=== PATIENT | female | born 1965 | race Caucasian/White ===

== ENCOUNTER 2020-09-02 10:11 | Emergency (ER) | payer OTHER ==
[~2020-09-02 10:11] MED LIST: ATARAX25 MG PO; MEDROL 4MG DOSEP4 MG PO; PEPCID AC20 MG PO
[2020-09-02 11:07] LABS: BILIRUBIN NEGATIVE (NEGATIVE); BLOOD NEGATIVE Ery/uL (NEGATIVE); CLARITY CLEAR (CLEAR); COLOR YELLOW (YELLOW); GLUCOSE (U) NORMAL (NORMAL); LEUKOCYTES NEGATIVE Leu/uL (NEGATIVE); NITRITE NEGATIVE (NEGATIVE); PROTEIN TRACE (LOW) mg/dL (NEGATIVE)
[2020-09-02 11:07] LABS: BASOPHIL 0.4 % (0-2); EOSINOPHIL 2.1 % (0-5); HCT 39.6 % (37.0-47.0); HGB 13.2 g/dl (12.5-16.0); LYMPHOCYTE 16.7 % (15-48); MCH 30.4 pg (25.0-31.0); MCHC 33.3 g/dL (32.0-36.0); MCV 91.2 fL (78.0-100.0); MONOCYTE 8.5 % (0-12); MPV 10.8 fL (6.0-9.5); NEUTROPHIL 71.9 % (41-80); NRBC 0; PLT 212 K/uL (150-400); RBC 4.34 M/uL (4.20-5.40); RDW 12.9 % (11.5-14.0); WBC 11.8 K/uL (4.0-10.5)
[2020-09-02 11:39] LABS: BACTERIA 1+; SQUAMOUS EPITHELIAL CELLS 20-50; URINARY RBC RARE; URINARY WBC RARE
[2020-09-02] MEDS ORDERED: ANUCORT-HC25 MG PR (11:39)
[2020-11-06] MEDS ORDERED: KLOR-CON M2020 MEQ PO (15:22)
== END 2020-09-02 11:47 | disposition home or self-care (01) ==
LOC: FER 10:11
PROVIDERS: Emergency Medicine
DX: K64.4 Residual hemorrhoidal skin tags (principal); B34.9 Viral infection, unspecified; I10 Essential (primary) hypertension
CPT/HCPCS: 36415; 81001; 85025; 99283

== ENCOUNTER 2020-09-04 03:49 | Day surgery (SDCO) | payer OTHER ==
[~2020-09-04] VITALS: Ht 162.6 cm; Wt 108.0 kg
[~2020-09-04 03:49] MED LIST changes: +ANUCORT-HC25 MG PR
[2020-09-04 05:26] LABS: INR 1.14 (0.9-1.2); PTT 29.8 SECONDS (24.4-34.7)
[2020-09-04 05:32] LABS: BASOPHIL 0.3 % (0-2); EOSINOPHIL 1.1 % (0-5); HCT 40.4 % (37.0-47.0); HGB 13.5 g/dl (12.5-16.0); LYMPHOCYTE 10.2 % (15-48); MCH 30.1 pg (25.0-31.0); MCHC 33.4 g/dL (32.0-36.0); MCV 90.2 fL (78.0-100.0); MPV 11.1 fL (6.0-9.5); NEUTROPHIL 79.9 % (41-80); NRBC 0; PLT 246 K/uL (150-400); RBC 4.48 M/uL (4.20-5.40); RDW 12.6 % (11.5-14.0); WBC 15.7 K/uL (4.0-10.5)
[2020-09-04 05:34] LABS: ALBUMIN 3.6 g/dL (3.4-5.0); BILIRUBIN - TOTAL 0.7 mg/dL (0.2-1.0); BUN/CREAT RATIO (CALC) 26.7 RATIO; CREATININE 0.6 mg/dL (0.51-0.95); GLOBULIN (CALCULATION) 4.4 g/dL; POTASSIUM 3.6 mmol/L (3.5-5.1)
[2020-09-04] MEDS ORDERED: K-DUR20 MEQ PO (07:46)
[2020-09-04] MEDS ORDERED: FEOSOL325 MG PO (07:46)
[2020-09-04] MEDS ORDERED: HYDRALAZINE25 MG PO (07:47)
[2020-09-04] MEDS ORDERED: COZAAR50 MG PO (07:48)
[2020-09-04] MEDS ORDERED: VOLTAREN **OUT50 MG PO (07:48)
[2020-09-04] MEDS ORDERED: VITAMIN B-121000 MC1 PO (07:50)
[2020-09-04] MEDS ORDERED: VITAMIN D3125 MCG PO (07:51)
[2020-09-04] MEDS ORDERED: COREG25 MG PO (07:52)
[2020-09-04] MEDS ORDERED: AUGMENTIN 875-1 EACH PO (13:25)
[2020-09-04] MEDS ORDERED: COLACE100 MG PO (13:25)
[2020-09-04] MEDS ORDERED: ACETAMINOPHEN500 M1 PO (13:25)
[2020-09-04] MEDS ORDERED: MOTRIN600 MG PO (13:25)
[2020-09-04] MEDS ORDERED: OXY-IR 5MG5 MG PO (13:25)
--- NOTE | 2020-09-04 17:52 | NUR ---
[address] THAO THAT THE PATIENT HAS A TEMP 103.1 NEW ORDERS TO CANCEL THE DISCHARGE INSTRUCTIONS AND TO START IV ANTIBOTICS
--- NOTE | 2020-09-05 17:30 | NUR ---
PATIENT DISCHARGED HOME VIA PRIVATE VEHICLE WITH DAUGHTER. IV REMOVED. DISCHARGE INSTRUCTIONS REVIEWED AND PATIENT STATED SHE UNDERSTOOD THEM. ISNTRUCTED TO FOLLOW UP WITH PCP AND DR. THAO.
[2020-11-06] MEDS ORDERED: KLOR-CON M2020 MEQ PO (15:22)
== END 2020-09-05 17:45 | disposition home or self-care (01) ==
LOC: FER 03:49 → FAS 06:23 → FER 06:23 → FMS 06:32
PROVIDERS: Emergency Medicine; ADMIT Student in an Organized Health Care Education/Training Program
DX: K61.31 Horseshoe abscess (principal); I10 Essential (primary) hypertension; E53.8 Deficiency of other specified B group vitamins; E87.6 Hypokalemia; D50.9 Iron deficiency anemia, unspecified; E55.9 Vitamin D deficiency, unspecified; G43.909 Migraine, unspecified, not intractable, without status migrainosus; Z79.899 Other long term (current) drug therapy; Z88.2 Allergy status to sulfonamides; Z20.822 Contact with and (suspected) exposure to COVID-19
CPT/HCPCS: 36415; 72193; 80053; 85025; 85610; 85730; 87070; 87075; 87186; 87205; 93005; G0378; J1170; J2250; J2405; J2543; J2704; J3010; J3480; J7120; Q9967; U0002

== ENCOUNTER 2020-09-11 13:53 | Emergency (ER) | payer OTHER ==
[~2020-09-11 13:53] MED LIST changes: +ACETAMINOPHEN500 M1 PO; +AUGMENTIN 875-1 EACH PO; +COLACE100 MG PO; +COREG25 MG PO; +COZAAR50 MG PO; +FEOSOL325 MG PO; +HYDRALAZINE25 MG PO; +K-DUR20 MEQ PO; +MOTRIN600 MG PO; +OXY-IR 5MG5 MG PO; +VITAMIN B-121000 MC1 PO; +VITAMIN D3125 MCG PO; +VOLTAREN **OUT50 MG PO
[2020-09-11 16:43] LABS: BASOPHIL 0.7 % (0-2); EOSINOPHIL 3.1 % (0-5); HCT 40.2 % (37.0-47.0); HGB 13.5 g/dl (12.5-16.0); LYMPHOCYTE 28.6 % (15-48); MCH 30.1 pg (25.0-31.0); MCHC 33.6 g/dL (32.0-36.0); MCV 89.5 fL (78.0-100.0); MONOCYTE 7.6 % (0-12); MPV 10.2 fL (6.0-9.5); NEUTROPHIL 58.7 % (41-80); NRBC 0; PLT 281 K/uL (150-400); RBC 4.49 M/uL (4.20-5.40); RDW 12.4 % (11.5-14.0); WBC 8.2 K/uL (4.0-10.5)
[2020-09-11 16:57] LABS: ALBUMIN 3.7 g/dL (3.4-5.0); BILIRUBIN - TOTAL 0.3 mg/dL (0.2-1.0); BUN/CREAT RATIO (CALC) 20.6 RATIO; CREATININE 0.68 mg/dL (0.51-0.95); GLOBULIN (CALCULATION) 3.9 g/dL; POTASSIUM 3.8 mmol/L (3.5-5.1); TOTAL PROTEIN 7.6 g/dL (6.4-8.2)
[2020-09-11 19:56] LABS: BILIRUBIN NEGATIVE (NEGATIVE); BLOOD NEGATIVE Ery/uL (NEGATIVE); CLARITY CLEAR (CLEAR); COLOR YELLOW (YELLOW); GLUCOSE (U) NORMAL (NORMAL); LEUKOCYTES NEGATIVE Leu/uL (NEGATIVE); NITRITE NEGATIVE (NEGATIVE); PROTEIN NEGATIVE (NEGATIVE)
[2020-11-06] MEDS ORDERED: KLOR-CON M2020 MEQ PO (15:22)
== END 2020-09-11 20:17 | disposition home or self-care (01) ==
LOC: FER 13:53
PROVIDERS: Nurse Practitioner Family
DX: G89.18 Other acute postprocedural pain (principal); K62.89 Other specified diseases of anus and rectum; I10 Essential (primary) hypertension; Z88.2 Allergy status to sulfonamides
CPT/HCPCS: 36415; 72193; 80053; 81003; 85025; J1885; J7030; Q9967

== ENCOUNTER 2020-09-26 17:55 | Emergency (ER) | payer OTHER ==
[2020-09-26 19:01] LABS: BASOPHIL 0.7 % (0-2); EOSINOPHIL 3.7 % (0-5); HCT 34.5 % (37.0-47.0); HGB 11.8 g/dl (12.5-16.0); LYMPHOCYTE 50.1 % (15-48); MCH 30.6 pg (25.0-31.0); MCHC 34.2 g/dL (32.0-36.0); MCV 89.6 fL (78.0-100.0); MONOCYTE 5.8 % (0-12); MPV 10.6 fL (6.0-9.5); NEUTROPHIL 38.6 % (41-80); NRBC 0; PLT 156 K/uL (150-400); RBC 3.85 M/uL (4.20-5.40); RDW 14.6 % (11.5-14.0)
[2020-09-26 19:07] LABS: WBC 9.5 K/uL (4.0-10.5)
[2020-09-26 19:21] LABS: ALBUMIN 3.5 g/dL (3.4-5.0); BILIRUBIN - TOTAL 0.7 mg/dL (0.2-1.0); CREATININE 0.81 mg/dL (0.51-0.95); GLOBULIN (CALCULATION) 3.9 g/dL; MAGNESIUM 1.9 mg/dL (1.8-2.4); TOTAL PROTEIN 7.4 g/dL (6.4-8.2)
[2020-09-26] MEDS ORDERED: K-DUR20 MEQ PO (19:58)
[2020-11-06] MEDS ORDERED: KLOR-CON M2020 MEQ PO (15:22)
== END 2020-09-26 20:10 | disposition home or self-care (01) ==
LOC: FER 17:55
PROVIDERS: Internal Medicine
DX: E87.6 Hypokalemia (principal); I10 Essential (primary) hypertension; Z88.2 Allergy status to sulfonamides
CPT/HCPCS: 36415; 80053; 83735; 85025; 99284

== ENCOUNTER → 2020-11-13 | Day surgery (SDC) | payer OTHER ==
[~2020-11-13] VITALS: Ht 154.9 cm; Wt 106.6 kg
[~2020-11-13] MED LIST changes: +KLOR-CON M2020 MEQ PO
== END | disposition home or self-care (01) ==
LOC: FAS 09:15
DX: Z12.11 Encounter for screening for malignant neoplasm of colon (principal); K60.3 Anal fistula; K62.1 Rectal polyp; K57.30 Diverticulosis of large intestine without perforation or abscess without bleeding; K64.8 Other hemorrhoids; I10 Essential (primary) hypertension; G43.909 Migraine, unspecified, not intractable, without status migrainosus; Z88.2 Allergy status to sulfonamides; Z79.891 Long term (current) use of opiate analgesic; Z79.899 Other long term (current) drug therapy
CPT/HCPCS: J2250; J2704; J3010; J7120

== ENCOUNTER → 2021-01-15 | Day surgery (SDC) | payer OTHER ==
[~2021-01-15] VITALS: Ht 154.9 cm; Wt 106.6 kg
[~2021-01-15] MED LIST changes: +AMOX-CLAV PO; +MIRALAX17 GM PO; +ULTRAM50 MG PO
[2021-01-15 08:46] LABS: BUN/CREAT RATIO (CALC) 24.1 RATIO; CREATININE 0.58 mg/dL (0.51-0.95); POTASSIUM 3.5 mmol/L (3.5-5.1)
== END | disposition home or self-care (01) ==
LOC: FAS 07:32
PROVIDERS: Anesthesiology
DX: K60.1 Chronic anal fissure (principal); K60.3 Anal fistula; K64.8 Other hemorrhoids; K64.4 Residual hemorrhoidal skin tags
CPT/HCPCS: 36415; 80048; J0585; J0690; J1100; J1170; J1644; J1885; J2001; J2250; J2405; J2704; J3010; J7120